=== PATIENT | female | born 1995 | race Hispanic/Latino ===

== ENCOUNTER 2020-09-07 16:29 | Emergency (ER) | payer OTHER ==
[~2020-09-07] VITALS: Ht 157.5 cm; Wt 96.4 kg
[2020-09-07] MEDS ORDERED: IBUPROFEN 600 MG TAB PO STA (19:10)
[2020-09-07] MEDS ORDERED: PREDNISONE20 MG PO (19:15)
[2020-09-07] MEDS ORDERED: IBUPROFEN 400 MG TAB ONE (19:23)
== END 2020-09-07 19:39 | disposition home or self-care (01) ==
LOC: FSED 16:45
DX: S93.402A Sprain of unspecified ligament of left ankle, initial encounter (principal); W10.8XXA Fall (on) (from) other stairs and steps, initial encounter; Y93.01 Activity, walking, marching and hiking
CPT/HCPCS: 99283